=== PATIENT | male | born 1970 | race Caucasian/White ===

== ENCOUNTER 2024-04-02 09:42 | Outpatient (CLI) | payer MEDICAID ==
[2024-04-02 12:19] LABS: BASOPHILS # (AUTO) 0.1 10^3/uL (0.0-0.1); EOSINOPHILS # (AUTO) 0.2 10^3/uL (0.0-0.7); EOSINOPHILS % (AUTO) 1.6 %; HCT - HEMATOCRIT 49.2 % (42.0-52.0); HGB - HEMOGLOBIN 17.2 g/dL (14.0-18.0); LYMPHOCYTES # (AUTO) 2.7 10^3/uL (1.5-3.5); LYMPHOCYTES % (AUTO) 28.6 %; MEAN CORPUSCULAR HEMOGLOBIN 33.2 pg (27.0-31.0); MEAN PLATELET VOLUME 11.1 fL (7.4-11.4); MONOCYTES # (AUTO) 0.6 10^3/uL (0.0-1.0); MONOCYTES % (AUTO) 6.8 %; NEUTROPHILS # (AUTO) 5.8 10^3/uL (1.5-6.6); NEUTROPHILS % (AUTO) 61.7 %; PLT - PLATELET COUNT 256 10^3/uL (130-450); RED BLOOD COUNT 5.18 10^6/uL (4.70-6.10); RED CELL DISTRIBUTION WIDTH 11.9 % (12.0-15.0); WHITE BLOOD COUNT 9.4 x10^3/uL (4.8-10.8)
[2024-04-02 12:30] LABS: BILIRUBIN,URINE SMALL (NEGATIVE); GLUCOSE, URINE (UA) 500 mg/dL (NEGATIVE); KETONES,URINE (UA) 40 mg/dL (NEGATIVE); LEUKOCYTE ESTERASE, URINE NEGATIVE (NEGATIVE); NITRITE,URINE NEGATIVE (NEGATIVE); OCCULT BLOOD,URINE TRACE-INTA (NEGATIVE); PH,URINE 5.5 PH (5.0-7.5); PROTEIN,URINE TRACE mg/dL (NEGATIVE); UROBILINOGEN,URINE 0.2 (NORMAL) E.U./dL (NORMAL)
[2024-04-02 12:50] LABS: CREATININE,URINE 198.2 mg/dL; MICROALBUM/CREATININE RATIO,UR 45.9 ug/mg (<30.0); MICROALBUMIN,URINE 9.1 mg/dL
[2024-04-02 12:58] LABS: ALBUMIN 4.7 g/dL (3.2-5.5); ALBUMIN/GLOBULIN RATIO 1.7 (1.0-2.2); ALKALINE PHOSPHATASE 59 IU/L (42-121); ALT ALANINE AMINOTRANSFERASE 20 IU/L (10-60); AMYLASE 54 U/L (28-100); AST ASPARTATE AMINOTRANSFERASE 18 IU/L (10-42); BILIRUBIN,TOTAL 0.8 mg/dL (0.2-1.0); BUN - BLOOD UREA NITROGEN 13 mg/dL (6-20); CARBON DIOXIDE - CO2 25 mmol/L (21-32); CHLORIDE 99 mmol/L (101-111); CHOL/HDL RATIO 9.6 (<5.0); CHOLESTEROL 260 mg/dL; GFR - MDRD 78 (>89); GLUCOSE 281 mg/dL (74-104); HDL CHOLESTEROL 27 mg/dL; LIPASE 261 U/L (11-82); POTASSIUM 4.3 mmol/L (3.5-4.5); SODIUM 134 mmol/L (135-145); TOTAL PROTEIN 7.4 g/dL (6.4-8.9); TRIGLYCERIDES 483 mg/dL
[2024-04-02 13:05] LABS: THYROID STIMULATING HORMONE 2.76 uIU/mL (0.34-5.60)
[2024-04-02 13:19] LABS: CLARITY,URINE CLEAR (CLEAR)
[2024-04-02 13:20] LABS: BACTERIA,URINE Few /HPF (None Seen); CASTS, URINE 0-2 Fine Granular /LPF; RBC,URINE 0-5 /HPF (0-5); SQUAMOUS EPITHELIAL CELL,UR NONE SEEN (<= Few)
[2024-04-02 14:13] LABS: LDL CHOLESTEROL,DIRECT 163 mg/dL (75-193)
[2024-04-02 14:43] LABS: ESTIMATED AVERAGE GLUCOSE 266 mg/dL (70-100); HEMOGLOBIN A1c% 10.9 % (4.27-6.07)
== END 2024-04-02 09:43 | disposition home or self-care (01) ==
LOC: LAB.N 09:42
DX: Z00.00 Encounter for general adult medical examination without abnormal findings (principal); R73.9 Hyperglycemia, unspecified; F10.10 Alcohol abuse, uncomplicated
CPT/HCPCS: 36415; 80053; 80061; 81001; 82043; 82150; 82570; 83036; 83690; 83721; 84153; 84443; 85025; 87086